=== PATIENT | female | born 1990 | race Caucasian/White ===

== ENCOUNTER 2016-11-15 13:10 | Emergency (ER) | payer BC ==
[2016-11-15] MEDS ORDERED: methylPREDNISolone SOD SUCC 125 MG/2 ML VIAL IVP ONE (14:22)
[2016-11-15] MEDS ORDERED: NS 1,000 ML IV ONE (14:23)
[2016-11-15] MEDS ORDERED: FAMOTIDINE 20 MG/2 ML SDV IVP ONE (14:23)
[2016-11-15 14:52] LABS: % IMMATURE GRANULYOCYTES 0.2 % (0.0-1.1); ABSOLUTE IMMATURE GRANULOCYTES 0.01 10^3/uL (0.00-0.10); ADD DIFF? NO; ADD MORPH? NO; ADD SCAN? NO; ATYPICAL LYMPHOCYTE FLAG 20 (0-99); FRAGMENT RBC FLAG 0 (0-99); HEMATOCRIT 46.2 % (38.0-47.0); HEMOGLOBIN 15.8 g/dL (12.6-16.3); LEFT SHIFT FLG 0 (0-99); LIPEMIA HEMOLYSIS FLAG 90 (0-99); MEAN CELL HEMOGLOBIN 31.2 pg (27.9-34.1); MEAN CELL HEMOGLOBIN CONCENTR. 34.2 g/dL (32.4-36.7); MEAN CELL VOLUME 91.3 fL (81.5-99.8); MEAN PLATELET VOLUME 9.8 fL (8.7-11.7); PLATELET CLUMPS FLAG 0 (0-99); PLATELET COUNT 275 10^3/uL (150-400); RED BLOOD CELL COUNT 5.06 10^6/uL (4.18-5.33); RED CELL DISTRIBUTION WIDTH 12.3 % (11.5-15.2)
--- NOTE | 2016-11-15 15:03 | EDPHY ---
H & P Stated Complaint: Poss allergic rx;sxs x 2 days;wants IV meds; no sresp distress HPI/ROS: CHIEF COMPLAINT: Allergic reaction HISTORY OF PRESENT ILLNESS: Patient complains of pruritic rash to the neck, chest and arms. This really started 4 days ago after eating some barbecue that she thinks triggered an allergic reaction. Improved over 2 days associated some more last night. That is significantly worsened. Very pruritic rash to the anterior neck, trunk, arms, and face. They rash has been weeping with yellow appearing fluid. No involvement of the mouth. No swelling of the lips or tongue. No difficulty breathing. No drooling. No difficulty managing his secretions. No chest pain or shortness of breath no fever chills. This happened to her several times in the past, it took multiple workups for her to discover what her inciting agents were, and has taken antibiotic treatments each time to improve. Minimal improvement with Benadryl. No other medications. No other associated complaints or modifying factors REVIEW OF SYSTEMS: Ten systems reviewed and are negative unless otherwise noted in the HPI PERTINENT MEDICAL HISTORY: Recurrent cellulitis and allergic reactions EXAMINATION General Appearance: Alert, no distress Head: normocephalic, atraumatic Eyes: Pupils equal and round, no conjunctival pallor or injection. No edema of the eyelids. ENT, Mouth: Mucous membranes moist. No erythema of the pharynx. No edema of the pharynx. No swelling of the lips or tongue. Airway is widely patent. Neck: Urticarial rash to the neck. supple, non-tender. Trachea midline. Respiratory: Lungs are clear to auscultation. No wheeze, rhonchi or crackles. Cardiovascular: Regular rate and rhythm. No murmur. Pulses intact distally. Gastrointestinal: Abdomen is soft and nontender Back: non-tender, no bony abnormalities Neurological: GCS 15. A&O, nonfocal, normal gait Skin: Warm and dry. erythema and urticarial rash to anterior neck, face, bilateral arms, chest. No petechiae purpura. No vesicular lesions. No ecchymosis. There is weeping to the urticarial rash. Extremities: Nontender, no pedal edema Psychiatric: Mood and affect normal DIFFERENTIAL DIAGNOSES: Including but not limited to allergic reaction, anaphylaxis, eczema, cellulitis MDM: 3:02 p.m. Acute allergic reaction without evidence of anaphylaxis. Her airway is widely patent without assistance. She does have an urticarial rash. We are treating her with steroids, IV fluids, Pepcid, Benadryl. 3:39 p.m. She is feeling much better at this time. Airway remains patent. No edema of the tongue or lip sprain We discussed discharge home with oral steroids transitioning to topical steroids, the patient is reluctant. She says in the past when she has done that the rash has gotten worse. She says the past she has taken Bactrim with improvement of the symptoms. She prefers to try topical steroid in lieu of oral steroid, and she would like a trial of Bactrim. She says this has been successful for the past. We will try this. She will follow up with her established architect naval and primary care physician. Return to ER for worsening symptoms. She is discharged home in stable condition. SUPERVISION: Patient was evaluated in conjunction with the supervising physician. Please see their note for details. Source: Patient Exam Limitations: No limitations - Personal History LMP (Females 10-55): IUD In Place Current Tetanus Diphtheria and Acellular Pertussis (TDAP): Yes - Medical/Surgical History Hx Asthma: Yes Hx Chronic Respiratory Disease: No Hx Diabetes: No Hx Cardiac Disease: No Hx Renal Disease: No Hx Cirrhosis: No Hx Alcoholism: No Hx HIV/AIDS: No Hx Splenectomy or Spleen Trauma: No Other PMH: Asthma - Social History Smoking Status: Former smoker Constitutional: Initial Vital Signs Temperature (C) 97.5 F 11/15/16 13:13 Heart Rate 87 11/15/16 13:13 Respiratory Rate 18 11/15/16 13:13 Blood Pressure 119/71 11/15/16 13:13 O2 Sat (%) 99 11/15/16 13:13 O2 Delivery Mode Room Air Allergies/Adverse Reactions: PEANUTS Allergy (Severe, Uncoded 01/03/13 23:45) DANDER Allergy (Uncoded 01/03/13 23:45) MOLD Allergy (Uncoded 01/03/13 23:45) Home Medications: Medication Instructions Recorded Famotidine [Pepcid 20 MG (*)] 20 mg PO BID #10 tab 11/15/16 Iud 11/15/16 Sulfamethox/Tmp 800/160 mg 1 tab PO BID 10 Days 11/15/16 [Bactrim Ds] Triamcinolone 0.1% [Triamcinolone 1 alena TP TID #1 cream 11/15/16 0.1% Cream] predniSONE [Deltasone] 60 mg PO DAILY #15 tablet 11/15/16 Medical Decision Making - Data Points Laboratory Results: Laboratory Results 11/15/16 14:45 11/15/16 14:45 11/15/16 11/15/16 11/15/16 14:45 14:45 14:45 WBC 5.60 10^3/uL 10^3/uL (3.80-9.50) RBC 5.06 10^6/uL 10^6/uL (4.18-5.33) Hgb 15.8 g/dL g/dL (12.6-16.3) Hct 46.2 % % (38.0-47.0) MCV 91.3 fL fL (81.5-99.8) MCH 31.2 pg pg (27.9-34.1) MCHC 34.2 g/dL g/dL (32.4-36.7) RDW 12.3 % % (11.5-15.2) Plt Count 275 10^3/uL 10^3/uL (150-400) MPV 9.8 fL fL (8.7-11.7) Neut % (Auto) 46.3 % % (39.3-74.2) Lymph % (Auto) 25.0 % % (15.0-45.0) [place] % (Auto) 8.0 % % (4.5-13.0) Eos % (Auto) 19.8 % H % (0.6-7.6) Baso % (Auto) 0.7 % % (0.3-1.7) Nucleat RBC Rel Count 0.0 % % (0.0-0.2) Absolute Neuts (auto) 2.59 10^3/uL 10^3/uL (1.70-6.50) Absolute Lymphs (auto) 1.40 10^3/uL 10^3/uL (1.00-3.00) Absolute Monos (auto) 0.45 10^3/uL 10^3/uL (0.30-0.80) Absolute Eos (auto) 1.11 10^3/uL H 10^3/uL (0.03-0.40) Absolute Basos (auto) 0.04 10^3/uL 10^3/uL (0.02-0.10) Absolute Nucleated RBC 0.00 10^3/uL 10^3/uL (0-0.01) Immature Gran % 0.2 % % (0.0-1.1) Immature Gran # 0.01 10^3/uL 10^3/uL (0.00-0.10) Sodium 142 mEq/L mEq/L (134-144) Potassium 4.8 mEq/L mEq/L (3.5-5.2) Chloride 108 mEq/L mEq/L (97-110) Carbon Dioxide 24 mEq/l mEq/l (22-31) Anion Gap 10 mEq/L mEq/L (8-16) BUN 9 mg/dL mg/dL (7-23) Creatinine 0.9 mg/dL mg/dL (0.6-1.0) Estimated GFR > 60 Glucose 75 mg/dL mg/dL (70-100) Calcium 9.5 mg/dL mg/dL (8.5-10.4) Beta HCG, Qual NEGATIVE Medications Given: Discontinued Medications Diphenhydramine HCl (Benadryl Injection) 25 mg IVP EDNOW ONE Stop: 11/15/16 14:24 Last Admin: 11/15/16 14:45 Dose: 25 mg Famotidine (Pepcid) 20 mg IVP EDNOW ONE Stop: 11/15/16 14:24 Last Admin: 11/15/16 14:46 Dose: 20 mg Sodium Chloride (Ns) 1,000 mls @ 0 mls/hr IV ONCE ONE PRN Reason: Wide Open Stop: 11/15/16 14:24 Last Admin: 11/15/16 14:46 Dose: 1,000 mls Methylprednisolone Sodium Succinate (Solu-Medrol) 125 mg IVP EDNOW ONE Stop: 11/15/16 14:23 Last Admin: 11/15/16 14:45 Dose: 125 mg Departure - Departure Disposition: Home, Routine, Self-Care Clinical Impression: Urticarial rash Acute allergic reaction Qualifiers: Encounter type: initial encounter Qualified Code(s): T78.40XA - Allergy, unspecified, initial encounter Condition: Good Instructions: Food Allergy (ED), Allergies (ED) Additional Instructions: Medications as discussed. Avoid the inciting agent. Return to ER for any return of symptoms, swelling of the lips or tongue, difficulty breathing Referrals: Courtney Norwood NP [Primary Care Provider] - As per Instructions Prescriptions: Famotidine [Pepcid 20 MG (*)] 20 mg PO BID #10 tab predniSONE [Deltasone] 60 mg PO DAILY #15 tablet Sulfamethox/Tmp 800/160 mg [Bactrim Ds] 1 tab PO BID 10 Days Triamcinolone 0.1% [Triamcinolone 0.1% Cream] 1 alena TP TID #1 cream
[2016-11-15 15:17] LABS: ANION GAP 10 mEq/L (8-16); CALCIUM 9.5 mg/dL (8.5-10.4); CARBON DIOXIDE 24 mEq/l (22-31); CHLORIDE 108 mEq/L (97-110); CREATININE 0.9 mg/dL (0.6-1.0); GLOMERULAR FILTRATION RATE > 60; GLUCOSE 75 mg/dL (70-100); POTASSIUM 4.8 mEq/L (3.5-5.2); SODIUM 142 mEq/L (134-144)
[2016-11-15 16:04] VITALS: BP 130/87; PULSE 80; RESP 14; TEMP 98.4; O2SAT 94
== END 2016-11-15 16:03 | disposition home or self-care (01) ==
DX: L50.0 Allergic urticaria (principal); J45.909 Unspecified asthma, uncomplicated; Z87.891 Personal history of nicotine dependence; Z91.010 Allergy to peanuts
CPT/HCPCS: 96374; J1200

== ENCOUNTER 2016-11-23 10:44 | Emergency (ER) | payer BC ==
--- NOTE | 2016-11-23 11:15 | EDPHY ---
H & P Time Seen by Provider: 11/23/16 11:01 HPI/ROS: CHIEF COMPLAINT: Rash to face and upper body HISTORY OF PRESENT ILLNESS: This is a 26-year-old female presenting to the emergency department for IV antibiotics. Patient states she was seen by a Dermatology this morning a Dr. Weathers, patient was initially placed on p.o. Bactrim antibiotics a week ago for skin infection, symptoms have worsened. Dr. Weathers is not sure whether it could be MRSA due to patient's history of MRSA. Patient also stated Dr. Weathers swab in area of her skin for MRSA. Patient states she also has a history of eczema usually treats with angie oil. Denies any fever chills REVIEW OF SYSTEMS: Constitutional: No fever, no chills. Eyes: No discharge. ENT: No sore throat. Cardiovascular: No chest pain, no palpitations. Respiratory: No cough, no shortness of breath. Gastrointestinal: No abdominal pain, no vomiting. Genitourinary: No hematuria. Musculoskeletal: No back pain. Skin: rashes Neurological: No headache. Smoking Status: Former smoker Physical Exam: General Appearance: Alert and no distress. Eyes: Pupils equal and round no injection. Respiratory: Chest is nontender, lungs are clear to auscultation. Cardiac: regular rate and rhythm Gastrointestinal: Abdomen is soft and nontender, no masses, bowel sounds normal. Musculoskeletal: Neck is supple and nontender. Extremities: full range of motion and are nontender. Eczema noted upper bilateral extremities Skin: Erythema with some some swelling noted to right side of face. Erythema dry skin noted to neck, chest. Eczema noted to bilateral antecubital fossa some break in skin and due to excoriations Constitutional: Initial Vital Signs Temperature (C) 36.4 C 11/23/16 10:53 Heart Rate 80 11/23/16 10:53 Respiratory Rate 22 H 11/23/16 10:53 Blood Pressure 118/73 11/23/16 10:53 O2 Sat (%) 96 11/23/16 10:53 O2 Delivery Mode Room Air Allergies/Adverse Reactions: Penicillins Allergy (Verified 11/23/16 10:52) PEANUTS Allergy (Severe, Uncoded 11/23/16 10:52) DANDER Allergy (Uncoded 11/23/16 10:52) MOLD Allergy (Uncoded 11/23/16 10:52) Home Medications: Medication Instructions Recorded Famotidine [Pepcid 20 MG (*)] 20 mg PO BID #10 tab 11/15/16 Iud 11/15/16 Sulfamethox/Tmp 800/160 mg 1 tab PO BID 10 Days 11/15/16 [Bactrim Ds] Triamcinolone 0.1% [Triamcinolone 1 alena TP TID #1 cream 11/15/16 0.1% Cream] predniSONE [Deltasone] 60 mg PO DAILY #15 tablet 11/15/16 Doxycycline Hyclate 100 mg PO BID #20 tab 11/23/16 predniSONE [predniSONE TAPER] 1 each PO .EDIT DOSE INSTRUCT #0 ea 11/23/16 Medical Decision Making ED Course/Re-evaluation: Discussed the plan of care: 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 Mancera regarding treatment plan. Patient has a history of a topic dermatitis with MRSA. Patient to be treated with doxycycline 100 mg twice daily times 10 days, with a prednisone taper. follow-up with Dermatology Discussed all discharge instructions with patient, discharge home---> stable Differential Diagnosis: Other differential diagnosis considered but not limited to necrotizing fasciitis , abscess and cellulitis - Data Points Laboratory Results: Laboratory Results 11/23/16 11:30 11/23/16 11:30 11/23/16 11/23/16 11:30 11:30 WBC 4.55 10^3/uL 10^3/uL (3.80-9.50) RBC 4.67 10^6/uL 10^6/uL (4.18-5.33) Hgb 14.8 g/dL g/dL (12.6-16.3) Hct 42.2 % % (38.0-47.0) MCV 90.4 fL fL (81.5-99.8) MCH 31.7 pg pg (27.9-34.1) MCHC 35.1 g/dL g/dL (32.4-36.7) RDW 12.1 % % (11.5-15.2) Plt Count 275 10^3/uL 10^3/uL (150-400) MPV 9.3 fL fL (8.7-11.7) Neut % (Auto) 32.0 % L % (39.3-74.2) Lymph % (Auto) 38.2 % % (15.0-45.0) [place] % (Auto) 10.5 % % (4.5-13.0) Eos % (Auto) 18.0 % H % (0.6-7.6) Baso % (Auto) 1.1 % % (0.3-1.7) Nucleat RBC Rel Count 0.0 % % (0.0-0.2) Absolute Neuts (auto) 1.45 10^3/uL L 10^3/uL (1.70-6.50) Absolute Lymphs (auto) 1.74 10^3/uL 10^3/uL (1.00-3.00) Absolute Monos (auto) 0.48 10^3/uL 10^3/uL (0.30-0.80) Absolute Eos (auto) 0.82 10^3/uL H 10^3/uL (0.03-0.40) Absolute Basos (auto) 0.05 10^3/uL 10^3/uL (0.02-0.10) Absolute Nucleated RBC 0.00 10^3/uL 10^3/uL (0-0.01) Immature Gran % 0.2 % % (0.0-1.1) Immature Gran # 0.01 10^3/uL 10^3/uL (0.00-0.10) Sodium 139 mEq/L mEq/L (134-144) Potassium 4.6 mEq/L mEq/L (3.5-5.2) Chloride 106 mEq/L mEq/L (97-110) Carbon Dioxide 22 mEq/l mEq/l (22-31) Anion Gap 11 mEq/L mEq/L (8-16) BUN 10 mg/dL mg/dL (7-23) Creatinine 1.0 mg/dL mg/dL (0.6-1.0) Estimated GFR > 60 Glucose 79 mg/dL mg/dL (70-100) Calcium 9.3 mg/dL mg/dL (8.5-10.4) Departure - Departure Disposition: Home, Routine, Self-Care Clinical Impression: Cellulitis Qualifiers: Site of cellulitis: unspecified site Qualified Code(s): L03.90 - Cellulitis, unspecified Atopic dermatitis Qualifiers: Atopic dermatitis type: unspecified Qualified Code(s): L20.9 - Atopic dermatitis, unspecified Condition: Good Instructions: Cellulitis (ED), Eczema (ED) Additional Instructions: The discussed discharge instructions 1. Take all medication as prescribed 2. Follow up with with Dermatology within the next 1-2 weeks to make sure symptoms are resolving 3. Follow up with primary care within the next 1-2 weeks Referrals: Courtney Norwood, [facility] [Primary Care Provider] - As per Instructions Stand Alone Forms: School Excuse Prescriptions: Doxycycline Hyclate 100 mg PO BID #20 tab predniSONE [predniSONE TAPER] 1 each PO .EDIT DOSE INSTRUCT #0 ea
[2016-11-23 11:35] LABS: % IMMATURE GRANULYOCYTES 0.2 % (0.0-1.1); ABSOLUTE IMMATURE GRANULOCYTES 0.01 10^3/uL (0.00-0.10); ADD DIFF? NO; ADD MORPH? NO; ADD SCAN? NO; ATYPICAL LYMPHOCYTE FLAG 40 (0-99); FRAGMENT RBC FLAG 0 (0-99); HEMATOCRIT 42.2 % (38.0-47.0); HEMOGLOBIN 14.8 g/dL (12.6-16.3); LEFT SHIFT FLG 0 (0-99); LIPEMIA HEMOLYSIS FLAG 90 (0-99); MEAN CELL HEMOGLOBIN 31.7 pg (27.9-34.1); MEAN CELL HEMOGLOBIN CONCENTR. 35.1 g/dL (32.4-36.7); MEAN CELL VOLUME 90.4 fL (81.5-99.8); MEAN PLATELET VOLUME 9.3 fL (8.7-11.7); PLATELET CLUMPS FLAG 0 (0-99); PLATELET COUNT 275 10^3/uL (150-400); RED BLOOD CELL COUNT 4.67 10^6/uL (4.18-5.33); RED CELL DISTRIBUTION WIDTH 12.1 % (11.5-15.2)
[2016-11-23 11:59] LABS: ANION GAP 11 mEq/L (8-16); CALCIUM 9.3 mg/dL (8.5-10.4); CARBON DIOXIDE 22 mEq/l (22-31); CHLORIDE 106 mEq/L (97-110); GLOMERULAR FILTRATION RATE > 60; GLUCOSE 79 mg/dL (70-100); POTASSIUM 4.6 mEq/L (3.5-5.2); SODIUM 139 mEq/L (134-144)
[2016-11-23 12:52] VITALS: BP 129/77; PULSE 70; RESP 14; TEMP 97.9; O2SAT 94
== END 2016-11-23 12:54 | disposition home or self-care (01) ==
DX: L03.90 Cellulitis, unspecified (principal); L20.9 Atopic dermatitis, unspecified; Z87.891 Personal history of nicotine dependence; Z91.010 Allergy to peanuts

== ENCOUNTER 2017-03-07 18:00 | Emergency (ER) | payer BC ==
[2017-03-07 18:05] VITALS: TEMP 98.4; O2SAT 96
[2017-03-07] MEDS ORDERED: FAMOTIDINE 20 MG TAB PO ONE (18:11)
[2017-03-07] MEDS ORDERED: DEXAMETHASONE 4 MG TAB PO ONE (18:12)
--- NOTE | 2017-03-07 18:14 | EDPHY ---
H & P Stated Complaint: NUT EXPOSURE Time Seen by Provider: 03/07/17 18:05 HPI/ROS: CHIEF COMPLAINT: Allergic reaction HISTORY OF PRESENT ILLNESS: The patient is a 26-year-old female with a history of allergies to multiple things. She states that she had a drink about an hour ago and then noticed some swelling in her throat. She is worried that maybe some peanuts got into the drink. She felt like her throat was swelling. No wheezing or stridor. She tried taking albuterol but that did not help. No rash. She also has eczema has been seen in the past for cellulitis but currently has no similar symptoms. She took 50 mg of Benadryl 10 minutes ago. REVIEW OF SYSTEMS: Constitutional: denies: chills, fever, recent illness, recent injury EENTM: See HPI Respiratory: See HPI Cardiac: denies: chest pain, irregular heart rate, lightheadedness, palpitations Gastrointestinal/Abdominal: denies: abdominal pain, diarrhea, nausea, vomiting, blood streaked stools Genitourinary: denies: dysuria, frequency, hematuria, pain Musculoskeletal: denies: joint pain, muscle pain Skin: denies: lesions, rash, jaundice, bruising Neurological: denies: headache, numbness, paresthesia, tingling, dizziness, weakness Hematologic/Lymphatic: denies: blood clots, easy bleeding, easy bruising Immunologic/allergic: denies: HIV/AIDS, transplant EXAM: GENERAL: Well-appearing, well-nourished and in no acute distress. HEAD: Atraumatic, normocephalic. EYES: Pupils equal round and reactive to light, extraocular movements intact, sclera anicteric, conjunctiva are normal. ENT: TMs normal, nares patent, oropharynx clear without exudates. Moist mucous membranes. NECK: Normal range of motion, supple without lymphadenopathy or JVD. LUNGS: Breath sounds clear to auscultation bilaterally and equal. No wheezes rales or rhonchi. HEART: Regular rate and rhythm without murmurs, rubs or gallops. ABDOMEN: Soft, nontender, normoactive bowel sounds. No guarding, no rebound. No masses appreciated. BACK: No CVA tenderness, no spinal tenderness, step-offs or deformities EXTREMITIES: Normal range of motion, no pitting or edema. No clubbing or cyanosis. NEUROLOGICAL: Cranial nerves II through XII grossly intact. Normal speech, normal gait. 5/5 strength, normal movement in all extremities, normal sensation PSYCH: Normal mood, normal affect. SKIN: Warm, dry, normal turgor, no visible rashes or lesions. Source: Patient Exam Limitations: No limitations - Personal History LMP (Females 10-55): 8-14 Days Ago - Medical/Surgical History Hx Asthma: Yes Hx Chronic Respiratory Disease: No Hx Diabetes: No Hx Cardiac Disease: No Hx Renal Disease: No Hx Cirrhosis: No Hx Alcoholism: No Hx HIV/AIDS: No Hx Splenectomy or Spleen Trauma: No Other PMH: Asthma/mrsa - Family History Significant Family History: No pertinent family hx - Social History Smoking Status: Former smoker Alcohol Use: Sober Drug Use: None Constitutional: Initial Vital Signs Temperature (C) 36.9 C 03/07/17 18:03 Heart Rate 100 03/07/17 18:03 Respiratory Rate 20 03/07/17 18:03 Blood Pressure 134/76 H 03/07/17 18:03 O2 Sat (%) 96 03/07/17 18:03 O2 Delivery Mode Room Air Allergies/Adverse Reactions: Penicillins Allergy (Verified 11/23/16 10:52) PEANUTS Allergy (Severe, Uncoded 03/07/17 18:01) DANDER Allergy (Uncoded 03/07/17 18:01) MOLD Allergy (Uncoded 03/07/17 18:01) Home Medications: Medication Instructions Recorded EPIPEN 03/07/17 Medical Decision Making ED Course/Re-evaluation: The patient is completely well appearing. No symptoms currently of respiratory distress or swelling. No urticaria. Will treat with oral medications and observed. Initially the patient was refusing steroids but eventually agreed. 7:20 p.m. the patient is doing completely well. She is asymptomatic. She is asking to leave. We discussed indications for returning. I gave her strict return precautions. She has not needed any new prescriptions. She refuses further steroids. The Decadron should last for 2 days. She has EpiPen at home if needed. Differential Diagnosis: Partial list of the Differential diagnosis considered include but were not limited to; allergic reaction, anxiety and although unlikely based on the history and physical exam, I also considered cellulitis, sepsis, anaphylaxis. I discussed these differential diagnoses and the plan with the patient as well as the usual and expected course. The patient understands that the diagnosis is provisional and that in medicine we are not always correct and that further workup is often warranted. Usual and customary warnings were given. All of the patient's questions were answered. The patient was instructed to return to the emergency department should the symptoms at all worsen or return, otherwise to followup with the physician as we discussed. - Data Points Medications Given: Discontinued Medications Dexamethasone (Decadron) 10 mg PO EDNOW ONE Stop: 03/07/17 18:13 Last Admin: 03/07/17 18:15 Dose: 10 mg Famotidine (Pepcid) 40 mg PO EDNOW ONE Stop: 03/07/17 18:12 Last Admin: 03/07/17 18:15 Dose: 40 mg Departure - Departure Disposition: Home, Routine, Self-Care Clinical Impression: Anxiety Allergic reaction Qualifiers: Encounter type: initial encounter Qualified Code(s): T78.40XA - Allergy, unspecified, initial encounter Condition: Fair Instructions: Food Allergy (ED) Additional Instructions: Keep taking Benadryl and Pepcid as we discussed. Referrals: NONE *PRIMARY CARE P,. [Primary Care Provider] - As per Instructions Alena Koch MD [Medical Doctor] - As per Instructions
[2017-03-07 19:33] VITALS: BP 117/82; PULSE 71; RESP 16
== END 2017-03-07 19:33 | disposition home or self-care (01) ==
DX: T78.40XA Allergy, unspecified, initial encounter (principal); F41.9 Anxiety disorder, unspecified; J45.909 Unspecified asthma, uncomplicated; Z87.891 Personal history of nicotine dependence; Z91.010 Allergy to peanuts

== ENCOUNTER 2017-05-03 15:15 | Observation (INO) | payer BC ==
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
[2017-05-03] MEDS ORDERED: LET GEL TOPICAL 1 EA SYR TP ONE (15:25)
[2017-05-03 17:48] LABS: % IMMATURE GRANULYOCYTES 0.3 % (0.0-1.1); ABSOLUTE IMMATURE GRANULOCYTES 0.02 10^3/uL (0.00-0.10); ADD DIFF? NO; ADD MORPH? NO; ADD SCAN? NO; ATYPICAL LYMPHOCYTE FLAG 30 (0-99); FRAGMENT RBC FLAG 0 (0-99); HEMATOCRIT 40.6 % (38.0-47.0); HEMOGLOBIN 14.6 g/dL (12.6-16.3); LEFT SHIFT FLG 0 (0-99); LIPEMIA HEMOLYSIS FLAG 90 (0-99); MEAN CELL HEMOGLOBIN 32.7 pg (27.9-34.1); MEAN CELL VOLUME 90.8 fL (81.5-99.8); MEAN PLATELET VOLUME 10.3 fL (8.7-11.7); PLATELET CLUMPS FLAG 0 (0-99); PLATELET COUNT 268 10^3/uL (150-400); RED BLOOD CELL COUNT 4.47 10^6/uL (4.18-5.33); RED CELL DISTRIBUTION WIDTH 12.1 % (11.5-15.2)
[2017-05-03 17:55] LABS: ANION GAP 13 mEq/L (8-16); CALCIUM 9.4 mg/dL (8.5-10.4); CARBON DIOXIDE 20 mEq/l (22-31); CHLORIDE 105 mEq/L (97-110); GLOMERULAR FILTRATION RATE > 60; GLUCOSE 90 mg/dL (70-100); POTASSIUM 4.1 mEq/L (3.5-5.2); SODIUM 138 mEq/L (134-144)
[2017-05-03] MEDS ORDERED: ALBUTEROL 200 PUFFS/18 GM MDI IH PRN (18:23)
[2017-05-03] MEDS ORDERED: ACETAMINOPHEN 325 MG TAB PO PRN (18:25)
[2017-05-03] MEDS ORDERED: ONDANSETRON 4 MG/2 ML VIAL IVP PRN (18:25)
[2017-05-03] MEDS ORDERED: ONDANSETRON DISINTEGRATING 4 MG TAB PO PRN (18:25)
[2017-05-03] MEDS ORDERED: HYDROCODONE/APAP 5/325 TAB PO PRN (18:25)
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
[2017-05-03] MEDS: IBUPROFEN 600 MG TAB PO SCH (22:38)
[2017-05-03] MEDS: BACITRACIN OINTMENT 1 PACKET TP SCH (22:39)
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
[2017-05-04 07:58] VITALS: RESP 14; TEMP 98.9
[2017-05-04] MEDS: IBUPROFEN 600 MG TAB PO SCH (08:18)
[2017-05-04] MEDS: BACITRACIN OINTMENT 1 PACKET TP SCH (08:19)
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
--- NOTE | 2017-05-04 11:51 | ASMTCMCOM ---
CM Note CM Note Notes: Patient discharging home with boyfriend with no additional Case management needs apparent at this time. Date Signed: 05/04/2017 11:50 AM Electronically Signed By:MICHAEL Roy
--- NOTE | 2017-05-04 11:51 | ASDISCHSUM ---
Discharge Information Plan Status:Home with No Needs Medically Cleared to Leave:05/04/2017 Discharge Date:05/04/2017 CM D/C Disposition:Home, Routine, Self-Care ADT D/C Disposition:Home, Routine, Self-Care Projected Discharge Date:05/04/2017 01:00 PM Transportation at D/C:Friend Discharge Delay Reason: Follow-Up Date:05/04/2017 01:00 PM Discharge Slot: Final Diagnosis:Frontal Bone fracture, [place] Bone Fracture Placement Information Patient Contact Information Contact Name:DAVID Relationship:Father Address:[address] City:[place] Alternate Phone: [facility]/Zip Code:[place] [address] Email: Financial Information Financial Class:HMO and PPO Plans Primary Plan Desc: OUT OF STATE PPO Primary Plan Number:[id number] Secondary Plan Desc: Secondary Plan Number: Assessment Information BC CM Progress Note CM Note CM Note Notes: Patient discharging home with guicho with no additional Case management needs apparent at this time. Date Signed: 05/04/2017 11:50 AM Electronically Signed By:MICHAEL Roy Intervention Information
--- NOTE | 2017-05-04 11:52 | ASMTCASEMG ---
Living Arrangements What is your living Answers: With Other (Not Family) arrangement? Who do you live with? Case Management Evaluation Functional: Able to Answers: No return Home with Prior Level of Function/Care Discharge Plan Comments Coordination Status Comments Notes: Patient to discharge with no additional support needs. Date Signed: 05/04/2017 11:51 AM Electronically Signed By:MICHAEL Roy
[2017-05-04 13:21] VITALS: BP 77/44; PULSE 66; O2SAT 96
== END 2017-05-04 13:36 | disposition home or self-care (01) ==
LOC: EDUNIT# → F2N 20:25
PROVIDERS: ADMIT Surgery; ATTEND Surgery
DX: S02.81XA Fracture of other specified skull and facial bones, right side, initial encounter for closed fracture (principal); S02.2XXA Fracture of nasal bones, initial encounter for closed fracture; S50.311A Abrasion of right elbow, initial encounter; H53.2 Diplopia; G93.89 Other specified disorders of brain; R40.2412 Glasgow coma scale score 13-15, at arrival to emergency department; G47.00 Insomnia, unspecified; J45.909 Unspecified asthma, uncomplicated; V18.0XXA Pedal cycle driver injured in noncollision transport accident in nontraffic accident, initial encounter; Y93.55 Activity, bike riding; Y92.482 Bike path as the place of occurrence of the external cause; Z87.891 Personal history of nicotine dependence; Z88.0 Allergy status to penicillin
CPT/HCPCS: 70450; 73080; 92523; 97161; 97166; G0378